=== PATIENT | female | born 1990 | race Hispanic/Latino ===

== ENCOUNTER 2018-10-03 05:46 | Inpatient (IN) ==
[2018-10-03 07:17] LABS: Cocaine Ur Negative (NEGATIVE); Urine Barbiturate Negative (NEGATIVE); Urine Benzodiazepines Negative (NEGATIVE); Urine Opiates Negative (NEGATIVE); Urine PCP Negative (NEGATIVE); Urine THC Negative (NEGATIVE)
[2018-10-03] MEDS ORDERED: OXYTOCIN/DEXTROSE 5%-WATER 30 UNITS/500 ML BAG IV ONE (11:38)
[2018-10-03] MEDS ORDERED: DEXTROSE 5%-LACTATED RINGERS 1,000 ML IV PRN (11:38)
[2018-10-03] MEDS ORDERED: RINGER'S SOLUTION,LACTATED 1,000 ML IV ONE (11:38)
[2018-10-03] MEDS ORDERED: ONDANSETRON HCL/PF 2 MG/ML VIAL IV PRN ×2 (11:38→18:49)
--- NOTE | 2018-10-03 11:50 | HP ---
Chief Complaint - Chief Complaint Date of Service: 10/03/18 Time of Service: 11:43 Chief Complaint: contractions History of Present Illness: 28 yo G2 P 1 at 39 6/7 wks presents to L&D complaining of contractions of increasing frequency and intensity since around 0100 this am. This without complications. Rh positive Rubella immune GBS negative Medical History (Last Reviewed 10/03/18 @ 11:46 by Rosalino Price DO) Degenerative disc disease, lumbar Onset Date: ~2011 Diverticulosis Onset Date: ~2011 GERD (gastroesophageal reflux disease) Onset Date: ~2016 Kidney stone Onset Date: ~2009 Ovarian cyst age 8 Surgical History: Surgical History (Last Reviewed 10/03/18 @ 11:46 by Rosalino Price DO) H/O lithotripsy Onset Date: ~2009 History of cholecystectomy Onset Date: ~2005 Family History: Family History (Last Reviewed 10/03/18 @ 11:46 by Rosalino Price DO) Father Hypertension Mother Diabetes Type II Asthma Hypertension Heart murmur Social History: Preferred Language Upper Sorbian Smoking Status Never smoker (Last Updated 09/24/18 @ 16:42 by Raphael Ruggiero MD) No Social History Section defined Review Of Systems (GEN) - Review of Systems Generalized/Overall Review: Present: No Symptoms Reported EENTM: Present: No Symptoms Reported Respiratory: Present: No Symptoms Reported Cardiac: Present: No Symptoms Reported Abdominal: Present: Other - contractions Genitourinary: Present: No Symptoms Reported Musculoskeletal: Present: Back Pain Neurological: Present: No Symptoms Reported Skin: Present: No Symptoms Reported Endocrine: Present: No Symptoms Reported Allergies/Adverse Reactions: Allergies Allergy/AdvReac Type Severity Reaction Status Date / Time No Known Allergies Allergy Verified 09/24/18 15:52 Home Medications: HOME MEDICATIONS vitamin,calcium,ozkdbuhc-iqlf-sqsan acid tablet 1 tab PO DAILY 02/28/18 [Last Taken Unknown] ranitidine 150 mg tablet 150 mg PO HS 02/28/18 [Last Taken Unknown] acetaminophen 325 mg tablet 325 mg PO Q6H PRN 05/02/18 [Last Taken Unknown] ferrous sulfate 325 mg (65 mg iron) tablet 325 mg PO DAILY tab 08/08/18 [Last Taken Unknown] Exam - Exam Vital Signs: Vital Signs - Last Taken Temp 37 C 10/03/18 10:55 Pulse 84 02/06/19 10:55 Resp 18 10/03/18 10:55 BP 134/72 10/03/18 10:55 Pulse Ox 97 10/03/18 10:55 Constitutional: Present: Alert, Oriented x3, Cooperative, Mild distress ENT Exam: Present: hearing grossly normal Breasts: Present: Exam deferred Respiratory: Present: lungs clear, no respiratory distress Cardiovascular/Chest: Present: regular rate, rhythm Abdomen: Present: soft, nontender, no rebound tenderness, other - gravid /Rectal: Present: Other - cervix 2-3/80/-2 Extremity: Present: no calf tenderness, lower extremity edema - 1/4 Skin Exam: Present: normal color, warm/dry, no cyanosis Neurologic: Present: alert, normal mood/affect, oriented x 3, other - Patella reflex 3/4 bilateral Appearance: Present: appropriate appearance, appropriate insight Eye contact: Present: cooperative, good eye contact, normal speech Thoughts: Present: normal thought pattern Diagnostic Studies: Laboratory Results Urine Opiates Screen Negative (NEGATIVE) 10/03/18 05:55 Barbiturate Screen Negative (NEGATIVE) 10/03/18 05:55 Ur Phencyclidine Scrn Negative (NEGATIVE) 10/03/18 05:55 Urine Amphetamine Negative (NEGATIVE) 10/03/18 05:55 U Benzodiazepines Scrn Negative (NEGATIVE) 10/03/18 05:55 Urine Cocaine Screen Negative (NEGATIVE) 10/03/18 05:55 Urine Marijuana (THC) Negative (NEGATIVE) 10/03/18 05:55 NST reactive Assessment/Plan - Assessment/Plan (1) Labor established Assessment: Admit for routine labor management. Epidural PRN. Problem: Acute
[2018-10-03] MEDS ORDERED: NALOXONE HCL 1 MG/1 ML SYRG IV PRN (18:49)
[2018-10-03] MEDS ORDERED: BUPIVACAINE HCL/0.9 % NACL/PF 250 ML EP PRN (18:49)
[2018-10-03] MEDS ORDERED: fentaNYL CITRATE/PF 50 MCG/ML AMPUL IT SCH (19:00)
[2018-10-03] MEDS ORDERED: LIDOCAINE HCL/EPINEPHRINE 20 ML VIAL ONE (19:25)
[2018-10-03] MEDS ORDERED: LIDOCAINE HCL/EPINEPHRINE 20 ML VIAL IJ ONE (19:28)
--- NOTE | 2018-10-03 20:42 | ANES ---
Anesthesia Pre Procedure Eval Vitals/Labs: Last Vital Signs Temp 36.6 C 10/03/18 19:38 Pulse 71 10/03/18 19:38 Resp 18 10/03/18 19:38 BP 135/77 10/03/18 19:38 Pulse Ox 100 10/03/18 19:38 HOME MEDICATIONS vitamin,calcium,bmhtviuq-ezhx-ybcpt acid tablet 1 tab PO DAILY 02/28/18 [Last Taken Unknown] ranitidine 150 mg tablet 150 mg PO HS 02/28/18 [Last Taken Unknown] acetaminophen 325 mg tablet 325 mg PO Q6H PRN 05/02/18 [Last Taken Unknown] ferrous sulfate 325 mg (65 mg iron) tablet 325 mg PO DAILY tab 08/08/18 [Last Taken Unknown] Allergies/Adverse Reactions: Allergies Allergy/AdvReac Type Severity Reaction Status Date / Time No Known Allergies Allergy Verified 09/24/18 15:52 - Planned Procedure Planned Procedure: ACTIVE LABOR Medication List Reviewed:: Yes Allergies Verified: Yes Medical History (Last Reviewed 10/03/18 @ 20:42 by Serge Barnett CRNA) Degenerative disc disease, lumbar Onset Date: ~2011 Diverticulosis Onset Date: ~2011 GERD (gastroesophageal reflux disease) Onset Date: ~2016 Kidney stone Onset Date: ~2009 Ovarian cyst age 8 Surgical History (Last Reviewed 10/03/18 @ 20:42 by Serge Barnett CRNA) H/O lithotripsy Onset Date: ~2009 History of cholecystectomy Onset Date: ~2005 Family History (Last Reviewed 10/03/18 @ 20:42 by Serge Barnett CRNA) Father Hypertension Mother Diabetes Type II Asthma Hypertension Heart murmur - Family Anesthesia History Family History:: no untoward family reactions to anesthesia - Airway/Neck/Teeth Within Normal Limits:: Yes Teeth Condition: intact Neck Exam: full range of motion Mallampatti Score: 2 Thyromental (T-M) distance: > 6 cm Mandibulo Hyoid distance: > 3 cm - Respiratory Smoking Status: Never smoker Sleep Apnea currently treated: No Sleep Apnea by current assessment: No - Cardiovascular Tolerate Activity: Good Heart Sounds: S1 & S2, Regular - Anesthesia Assessment and Plan ASA Class: PS, II, E Anesthesia Type Plan: Epidural
--- NOTE | 2018-10-03 20:43 | ANES ---
Post Anesthesia Discharge - Transfer of Care Transfer of Care handoff given to nurse: Yes - Anesthesia Post Op Note Anesthesia Post Op Note: Care transferred to OB RN
--- NOTE | 2018-10-03 20:44 | ANES ---
Post Anesthesia Assessment - Vital Signs Vitals: Last Vital Signs Temp 36.6 C 10/03/18 19:38 Pulse 71 10/03/18 19:38 Resp 18 10/03/18 19:38 BP 135/77 10/03/18 19:38 Pulse Ox 100 10/03/18 19:38 Airway Patency: Normal - Mental Status Level Of Consciousness: Awake - Pain Level Pain Score: 1 - N/V Assessment Nausea/Vomiting Presence: None Dehydration:: No
--- NOTE | 2018-10-03 20:45 | ANES ---
Anesthesia Procedure Note Procedure Note: ANESTHESIA PROCEDURE NOTE Date of Procedure: 10/03/2018 Time of procedure: 1999. Performed by: Bertram Barnett CRNA Registrar Museum: None. Preprocedure diagnosis: Active labor. Post procedure diagnosis: Same. Procedure: Insertion of labor epidural. Indications: The patient is a 28-year-old multigravida female in active labor requesting labor epidural for pain management. Findings: See below. Details of the procedure: The patient was placed in a sitting position. Back was prepped with DuraPrep. Patient was then draped in a sterile fashion. Lidocaine 1% was infiltrated to the skin and subcutaneous tissues at the level of the L3 4 interspace. The epidural space was identified using a 18-gauge Tuohy needle with [id number] technique. 20 mcg fentanyl was given intrathecally using a 27 ga. spinal needle. Epidural catheter was inserted without difficulty. Negative test dose was elicited using 3 mL of 2% preservative-free lidocaine plus epinephrine 1 200,000. The epidural catheter was then taped and secured in place. EBL: Minimal. Fluids: N/A. Specimen: N/A. Post procedure condition: The patient tolerated the procedure well. No complications were noted. Thank you for this consultation. Drake CRNA
--- NOTE | 2018-10-03 20:48 | PN ---
Progess Note - Interim Date: 10/03/18 Time: 20:42 Narrative: 10/03/18 20:42 Patient comfort with epidural. Vitals stable FHT 150, good BTBV, accelerations, occasional early deceleration Contractions q 2-3 min Pitocin 4 mu/min Cvx 7/80/-2, AROM - clear fluid Impression/Plan: 39 6/7 wk IUP in labor. Expect soon. Dr Ruggiero will be assuming care from this point on. Nurse updated Dr Ruggiero of current exam. 10/03/18 20:47
[2018-10-04] MEDS ORDERED: GLYCERIN/WITCH HAZEL LEAF 40 APPL BOX TP PRN (00:18)
[2018-10-04] MEDS ORDERED: HYDROCORTISONE 30 APPL TUBE TP PRN (00:18)
[2018-10-04] MEDS ORDERED: BISACODYL 10 MG SUPP.RECT RC PRN (00:18)
[2018-10-04] MEDS ORDERED: BENZOCAINE/MENTHOL 81 SPRAY CAN TP PRN (00:18)
[2018-10-04] MEDS ORDERED: SENNOSIDES 8.6 MG TABLET PO PRN (00:18)
[2018-10-04] MEDS ORDERED: diphenhydrAMINE HCL 25 MG CAPSULE PO PRN (00:18)
[2018-10-04] MEDS ORDERED: OXYTOCIN/DEXTROSE 5%-WATER 30 UNITS/500 ML BAG IV ONE (00:18)
--- NOTE | 2018-10-04 00:18 | OR ---
Operative Report - Dictated Report Narrative: Spontaneous Vaginal Delivery Note: 28 yo, , 39.6 weeks labor GBS negative Augmentation: pitocin AROM: clear Analgesia: epidural Progressed to complete without complications. Perineum cleaned with betadine. Pushed with good descent. Head delivered in LAUREL over the perineum. No nuchal cord. The anterior shoulder delivered, followed by the posterior shoulder and the rest of the baby. Baby placed on maternal abdomen for drying and care by the nursing. Cord was clamped at 50 sec of life and cut by the father of the baby. Cord blood was obtained. Placenta delivered intact with a 3 vessel cord. Mother and baby tolerated the delivery well. Laceration: none. EBL 100 ml. Infant: female, 3790 grams. 8/9. Time of delivery: 23:51 Raphael Ruggiero MD History for Definition: * The number of deliveries resulting in a live the patient experienced prior to current hospitalization * The previous delivery of live twins or any live multiple gestation is considered one live event. *If primagravida or nulliparous is documented select zero for the number of previous live births. Live Events: 1
[2018-10-04] MEDS: IBUPROFEN 800 MG TABLET PO PRN ×3 (00:45→16:20)
[2018-10-04] MEDS: oxyCODONE HCL/ACETAMINOPHEN 1 TAB TABLET PO PRN ×5 (00:45→21:08)
[2018-10-04] MEDS: DOCUSATE SODIUM 100 MG CAPSULE PO SCH ×2 (09:09→21:08)
--- NOTE | 2018-10-04 16:42 | PN ---
Subjective - Date and Time Seen Date: 10/04/18 Subjective Narrative: day 1, s/p doing well. no complaints. bottle feeding. normal lochia. pain controlled. Objective - Vitals Vitals: Last Vital Signs Temp 36.9 C 10/04/18 06:30 Pulse 79 10/04/18 06:30 Resp 18 10/04/18 06:30 BP 124/63 10/04/18 06:30 Pulse Ox 96 10/04/18 06:30 - Exam Constitutional: Present: Alert, Oriented x3, Cooperative Cardiovascular/Chest: Present: normal peripheral pulses Abdomen: Present: soft, nontender, nondistended, other - fundus firm at the umbilicus Extremity: Present: normal range of motion, no calf tenderness, pedal edema Skin Exam: Present: normal color, warm/dry, no cyanosis Appearance: Present: appropriate appearance Eye contact: Present: cooperative, good eye contact, normal speech Cauti Physician Documentation - Urinary Catheter Management Urethral (Jarrett) Date of Insertion: 10/03/18 Time of Insertion: 20:25 Date of Removal: 10/03/18 Time of Removal: 23:40 Assessment/Plan Plan Narrative: A: day 1, s/p , stable and well. plan: routine care. ambulation encouraged. Raphael Ruggiero MD
[2018-10-05] MEDS: oxyCODONE HCL/ACETAMINOPHEN 1 TAB TABLET PO PRN ×3 (00:01→13:24)
[2018-10-05] MEDS: IBUPROFEN 800 MG TABLET PO PRN ×2 (05:57→13:25)
[2018-10-05 08:22] VITALS: BP 113/67
--- NOTE | 2018-10-05 09:42 | PN ---
Subjective - Date and Time Seen Date: 10/05/18 Subjective Narrative: day 2, s/p doing well. no complaints. bottle feeding. normal lochia. Objective - Vitals Vitals: Last Vital Signs Temp 36.8 C 10/05/18 08:20 Pulse 77 10/05/18 08:20 Resp 16 10/05/18 08:20 BP 113/67 10/05/18 08:20 Pulse Ox 97 10/05/18 08:20 - Exam Constitutional: Present: Alert, Oriented x3, Cooperative Cardiovascular/Chest: Present: normal peripheral pulses Abdomen: Present: soft, nontender, nondistended, other - fundus firm and below umbilicus Extremity: Present: no pedal edema, no calf tenderness Skin Exam: Present: normal color, warm/dry, no cyanosis Appearance: Present: appropriate appearance Eye contact: Present: cooperative, good eye contact, normal speech Cauti Physician Documentation - Urinary Catheter Management Urethral (Jarrett) Date of Insertion: 10/03/18 Time of Insertion: 20:25 Date of Removal: 10/03/18 Time of Removal: 23:40 Assessment/Plan Plan Narrative: A: day 2, s/p stable and well. Plan: will discharge home today. Raphael Ruggiero MD
[2018-10-05] MEDS: DOCUSATE SODIUM 100 MG CAPSULE PO SCH (10:16)
== END 2018-10-05 14:40 | disposition home or self-care (01) | DRG 807 ==
LOC: OBCLINIC 05:46 → OB 09:16
PROVIDERS: ADMIT Obstetrics & Gynecology; ATTEND Obstetrics & Gynecology
CPT/HCPCS: 59025; 80307